=== PATIENT | male | born 1940 | race Caucasian/White ===

== ENCOUNTER 2018-01-24 17:47 | Observation (INO) ==
[2018-01-24] MEDS ORDERED: *HR* OxyCODONE Immed Rel 5 MG TABLET PO PRN (20:13)
[2018-01-24] MEDS ORDERED: *HR* HYDROcodone/Acet 5/325 mg TABLET PO PRN (20:13)
[2018-01-24] MEDS ORDERED: Naloxone 0.4 MG/ML INJ IVP PRN (20:13)
[2018-01-24] MEDS ORDERED: Acetaminophen 325 MG TABLET PO PRN (20:13)
[2018-01-24] MEDS ORDERED: Ipratropium/Albuterol Neb 3 ML IH PRN (20:18)
--- NOTE | 2018-01-24 20:28 | Internal Med History&Physical ---
<Randolph Whitney - Last Filed: 01/24/18 20:21> Date of Encounter: 01/24/18 Time of Encounter: 20:21 Internal Medicine - H&P: HPI Chief complaint: chills Admitted From: Hospital to Hospital Transfer Plans for Post Hospital Care: Home History of present illness: Mr. Shah is a 77 year old male with past medical history of COPD, hyperlipidemia, hypertension, stage III chronic kidney disease, depression, TIA , HFpEF, KARLENE and urinary retention presents to emergency department with chills 2 days. He reports symptoms were sudden onset and he also was experiencing diaphoresis fevers. Eyes recorded temperature per daughter who is at bedside was 102.9. He states that he has also been experiencing urinary frequency but denies any symptoms of dysuria, strong odor, discoloration. Denies any symptoms of chest pain, shortness of breath, abdominal pain, nausea, vomiting, flank pain. He has had urinary tract infections in the past with most recent urine culture growing strep agalactiae. Also reports generalized weakness and malaise during this time but states that this is likely chronic. He denies any symptoms of chest pain, shortness of breath, palpitations although does admit to cough with yellow sputum which is chronic. Patient's daughter states that he is at his baseline mental status. In [facility] emergency room, vital signs are significant for tachycardia 137, BP 75/55. EKG was obtained which reportedly showed atrial fibrillation. He received 2 L normal saline bolus with improvement of both blood pressure and heart rate. Patient denies any history of atrial fibrillation on the past. He is not on anticoagulation but is on clopidogrel and daughter states that aspirin was stopped recently by his primary care physician. Lab results were significant for a WBC of 13.6, platelets 106, potassium 3.1, P1/creatinine of 30 /1.88. Baseline creatinine appears to be around 1.4-1.5. Lactic acid was 2.0 and urinalysis indicates likely infection. Obtain chest x-ray which was unremarkable. He was given 2 g of Rocephin in the emergency department and admitted. He was then transferred to [facility] due to new onset atrial fibrillation with recommendation for cardiology consult. Past medical history as above Past surgical history includes cataracts, right ear surgery, heart catheterization with stent placement Social history: Patient denies cigarette smoking, states he drinks 1-2 beers per night, denies illicit drug use Most recent stress echo performed on 03/28/16 shows ejection fraction of 60% with atypical septal motion consistent with bundle branch block. Stress portion was negative for ischemia. Past Med Surg Social Fam HX - Past Medical History Medical history: COPD, hyperlipidemia, hypertension, renal disease, other ( atrial fib) Additional medical history: SLEEP APNEA. HOME O2. RLS. CRI. TIA. ANXIETY. RLS. DIASTOLIC CHF. CAD. PHIMOSIS. EDEMA RIGHT HAND Psychiatric history: depression - Past Surgical History Surgical History: other Additional surgical history: HEART CATH WITH STENTS. CATARACT REMOVAL. RIGHT EAR SURGERY - Social History Smoking Status: Former smoker Smokeless Tobacco Status: No Alcohol use: rarely Drug use: none Internal Medicine - H&P: Meds Atorvastatin [Lipitor] 40 mg PO HS 01/25/16 [History] Buspirone HCl [Buspar] 15 mg PO BID 01/25/16 [History] Clopidogrel [Plavix] 75 mg PO DAILY 01/25/16 [History] Isosorbide MONOnitrate (24 HR) [Imdur] 30 mg PO DAILY 01/25/16 [History] Loratadine [Claritin] 10 mg PO DAILY 01/25/16 [History] Metoprolol [Lopressor] 25 mg PO BID 01/25/16 [History] Omeprazole [PriLOSEC] 40 mg PO DAILY 01/25/16 [History] Albuterol Sulfate [Albuterol Inhaler] 2 puff IH BID PRN 03/21/16 [History] Docusate [Colace] 100 mg PO BID #60 capsule 03/21/16 [Rx] Ipratropium/Albuterol Neb [Duoneb] 3 ml IH Q6HR PRN 03/21/16 [History] Mv,Ca,Fe,Min/FA/Guarana/Caff [One Daily Tablet] 1 each PO DAILY 03/21/16 [ History] Oxybutynin Chloride [Ditropan Xl] 10 mg PO DAILY 03/21/16 [History] Potassium Chloride [K-Tab ER] 20 meq PO BID 03/21/16 [History] Sertraline [Zoloft] 50 mg PO DAILY 03/21/16 [History] Terazosin [Hytrin] 5 mg PO HS 03/21/16 [History] Vit A/C/E AC/Znox/Cupric Oxide [Eye Vitamin-Minerals Tablet] 1 each PO BID 03/21 [History] metOLazone [Zaroxolyn] 2.5 mg PO DAILY 03/21/16 [History] Allopurinol [Zyloprim 100 MG] 100 mg PO DAILY 01/24/18 [History] Umeclidinium Brm/Vilanterol Tr [Anoro Ellipta 62.5-25 Mcg INH] 1 each IH [History] 3 Allergy/AdvReac Type Severity Reaction Status Date / Time No Known Allergies Allergy Verified 09/01/17 17:00 All Systems PM: A 10-system review of systems was performed and is negative for pertinent findings except as documented above in the HPI. - Constitutional Constitutional: chills, excessive sweating, fever(s), weakness - EENT Eyes: no blurry vision - Cardiovascular Cardiovascular ROS IM: no chest pain, no diaphoresis, no dyspnea, no dyspnea on exertion, no edema, no irregular heart rhythm, no lightheadedness, no palpitations, no paroxysmal nocturnal dyspnea, no syncope - Respiratory Respiratory: cough, no dyspnea, no dyspnea on exertion, no wheezing, no change in phlegm color, no pain with cough - Gastrointestinal Gastrointestinal: no abdominal pain, no constipation, no diarrhea, no hematemesis, no loose stools, no melena, no nausea, no vomiting - Genitourinary Genitourinary ROS male: urinary frequency, no dysuria, no flank pain, no hematuria, no urinary hesitancy, no urinary incontinence, no urinary urgency - Integumentary Integumentary IM: no rash - Neurological Neurological ROS: no confusion, no dizziness, no headache(s), no numbness, no tingling, no weakness - Constitutional Vitals: Temp Pulse Resp BP Pulse Ox 98.4 F 72 18 116/60 97 01/24/18 19:22 01/24/18 19:22 01/24/18 19:22 01/24/18 19:22 01/24/18 19:22 Exam: Gen.: Vitals noted. No acute distress. Alert and oriented. Resting comfortably in bed. HEENT: PERRL/EOMI, oropharynx clear, Normocephalic, atraumatic, MMM Cardiac: RRR, no murmur, +S1/S2. Pulmonary: CTA bilaterally, no wheezes, rales or rhonchi, equal chest expansion. Lung bases difficult to auscultate due to bowel sounds Abdomen: soft, nontender, BS noted, no guarding, no rebound. MSK: ROM intact, no joint swelling noted Extremities: Minimal BLE edema, nontender calf, no cyanosis or clubbing Back: No flank tenderness bilaterally Neuro: A&Ox3, moves all extremities, no focal deficits Psych: Appropriate mood and behavior - Assessment and plan (1) Severe sepsis Current Visit: Yes Status: Resolved Assessment and plan: - Meets qualifications for severe sepsis on presentation to [facility] with elevated WBC of 13.6, tachycardia, lactic acid 2.0 - Was initially hypotensive at 75/55 emergency department but this has improved with fluids - This has resolved after treatment with fluids - WBC was trended and is now within normal limits at 10.6. Lactic acid trended is now 1.4 - Of note, patient was atrial fibrillation with rapid ventricular response which is now converted back to normal sinus rhythm - Likely source is urinary tract infection is temperature on urinalysis at [facility] emergency department - Blood cultures, urinary cultures drawn and [facility] pending - Previous culture showed strep agalactiae - Started on Rocephin 2 g and [facility] Plan - Continue Rocephin 1 g daily - Follow up on blood and urine cultures - Will not trend lactic acid as sepsis has resolved at this time of presentation - (2) Urinary tract infection Current Visit: Yes Status: Acute Assessment and plan: As above for severe sepsis Qualifiers: Urinary tract infection type: acute cystitis Hematuria presence: without hematuria Qualified Code(s): N30.00 - Acute cystitis without hematuria (3) New onset atrial fibrillation Current Visit: Yes Status: Acute Assessment and plan: - Atrial fibrillation with rapid ventricular response documented at [facility] emergency room - Converted back to normal sinus rhythm with rate control by the time he was admitted to [facility] - Continue home metoprolol 25 mg twice a day - Also noted to have stable right bundle branch block - He was transferred to [facility] for cardiology consultation as well as possible need for Cardizem drip will also having borderline hypotension - Troponin negative, we will trend - Started on Lovenox 1 mg/kg at [facility]. Will start eliquis 5mg BID - CHADVASC score 6 (age, CHF, HTN, TIA), HASBLED 4 (age, alcohol, stroke, antiplatelet) - TSH wnl. baseline anemia. Plan - Currently in NSR, rate in 70s. BP stable. - Patient is high risk for ischemic event, will start on eliquis, daughter denies previous bleeds - Continue home BB - Echocardiogram pending - Cardiology consult given new onset, appreciate recs. (4) Acute on chronic kidney failure Current Visit: Yes Status: Acute Assessment and plan: - History of Stage III CKD - BUN/Cr of 30/1.88 on presentation (baseline Cr of 1.4-1.5) - Possibly secondary to pre-renal in setting of AFib, sepsis, dehydration - Received 2L bolus in [facility] ED, euvolemic on exam, labs drawn before. Plan - Continue to monitor and check AM labs - Avoid nephrotoxic agents. Qualifiers: Acute renal failure type: unspecified Chronic kidney disease stage: stage 3 (moderate) Qualified Code(s): N17.9 - Acute kidney failure, unspecified; N18.3 - Chronic kidney disease, stage 3 (moderate) (5) Hypokalemia Current Visit: Yes Status: Acute Assessment and plan: Potassium 3.1 on presentation to [facility] Check magnesium Does take potassium supplementation at home, 20 mEq per day We will check again with morning labs (6) Thrombocytopenia Current Visit: Yes Status: Chronic Assessment and plan: Chronic, most recent reading of 106 No signs of bleeding Continue monitor in the setting of starting anticoagulation also on clopidogrel (7) Hypertension Current Visit: Yes Status: Chronic Assessment and plan: Well-controlled at most recent reading of 116/60, improved from [facility] after 2 L saline bolus Continue home medications Qualifiers: Hypertension type: essential hypertension Qualified Code(s): I10 - Essential (primary) hypertension (8) DVT prophylaxis Current Visit: Yes Status: Acute Assessment and plan: Start eliquis as above for AFib - Time Spent With Patient Total time spent is greater than 50% in coordination of care (as documented) at patient's floor/unit and/or counseling patient: <Brooks Burtchetanronda - Last Filed: 01/25/18 00:58> Date of Encounter: 01/25/18 Internal Medicine - H&P: HPI History of present illness: Mr. Shah is a 77 year old male All Systems PM: A 10-system review of systems was performed and is negative for pertinent findings except as documented above in the HPI. - Constitutional Vitals: Temp Pulse Resp BP Pulse Ox 98.4 F 72 18 116/60 98 01/24/18 19:22 01/24/18 19:22 01/24/18 19:22 01/24/18 19:22 01/24/18 20:58 Internal Med - H&P Results - Labs Labs: Cardiac Enzymes 01/24/18 Range/Units 20:42 Troponin I 0.03 (< 0.04) ng/mL - Attending Attestation I examined this patient and my medical decision-making was reviewed with the Resident Physician. I agree with the documented findings, disposition and treatment plan as described except to the extent set forth below. - Time Spent With Patient Total time spent is greater than 50% in coordination of care (as documented) at patient's floor/unit and/or counseling patient:
[2018-01-24] MEDS: Potassium Chloride Elixir 20 MEQ/15 ML UDC PO SCH (22:03)
[2018-01-24] MEDS: Apixaban 5 MG TABLET PO SCH (22:03)
[2018-01-25 03:38] LABS: Basophils % 0.8 %
[2018-01-25 03:39] LABS: Basophils # 0.1 K/mcL (0.0-0.2); Eosinophils # 0.4 K/mcL (0.0-0.6); Eosinophils % 4.5 %; Hematocrit 33.8 % (37.5-50.1); Hemoglobin 11.4 g/dL (12.9-16.9); Immature Granulocytes % 0.6 % (0-4); Immature Platelets 9.6 % (1.1-6.1); Lymphocytes # 1.1 K/mcL (0.6-4.6); Lymphocytes % 13.2 %; Mean Corpuscular HGB Conc 33.7 g/dL (31.6-35.5); Mean Corpuscular Hemoglobin 31.8 pg (28.0-33.3); Mean Corpuscular Volume 94.4 fL (83.0-100.0); Mean Platelet Volume 11.6 fL (9.4-12.4); Monocytes # 0.6 K/mcL (0.0-1.3); Monocytes % 7.1 %; Neutrophils # 6.4 K/mcL (1.6-8.9); Red Blood Count 3.58 M/mcL (4.19-5.50); Red Cell Distribution Width 14.6 % (11.5-14.5); Segmented Neutrophils % 73.8 %
[2018-01-25 03:43] LABS: BUN/Creatinine Ratio 18 (6-26); Blood Urea Nitrogen 26 mg/dL (8-23); Calcium 7.9 mg/dL (8.6-10.3); Carbon Dioxide 26 mEq/L (23-29); Chloride 106 mEq/L (98-107); Glucose 98 mg/dL (70-105); Magnesium 1.3 mg/dL (1.6-2.6); Osmolality,Calculated 293 (280-300); Potassium 3.3 mEq/L (3.5-5.1); Sodium 139 mEq/L (136-145); Troponin I < 0.03 ng/mL (< 0.04); eGFR For Non-African Americans 47 (> 60)
[2018-01-25 03:47] LABS: Platelet Count 96 K/mcL (140-400)
--- NOTE | 2018-01-25 08:36 | Cardiology Consult Note ---
<John Arriaga - Last Filed: 01/25/18 10:07> Date of Encounter: 01/25/18 Time of Encounter: 08:40 Assessment and Plan (1) UTI (urinary tract infection) Current Visit: Yes Status: Acute Per Cardiology: Management per primary service. On antibiotics. Qualifiers: Urinary tract infection type: acute cystitis Qualified Code(s): N30.00 - Acute cystitis without hematuria (2) New onset atrial fibrillation Current Visit: Yes Status: Acute Per Cardiology: No known previous afib. ECG reviewed with Dr. Dunham-- no clear cut evidence of afib/aflutter. Tele shows no afib/flutter. K & Mg replaced. Tsh ok. Awaiting echo. Has been started on Eliquis already, will need to address if will remain clinically recommended. Hx of ETOH, hx of TIAs. Has apparent hx of thrombocytopenia. (3) CAD (coronary artery disease) Current Visit: Yes Status: Chronic Per Cardiology: Hx of CAD. Last [facility] 2012: Lesion Findings/Interventions * Left Main Coronary Artery The LMCA is angiographically free of disease. * Left Anterior Descending Coronary Artery There is a 25% stenosis in the Proximal LAD. * Circumflex Coronary Artery There is a 30% stenosis in the Proximal Circumflex. * Right Coronary Artery There is a 10 mm long, 99% stenosis in the Proximal RCA. The lesion has a [place] flow of 3 and has no thrombus present. An intervention was performed on the Proximal RCA with a final stenosis of 0%. There were no lesion complications. The final [place] flow was 3. There is a 30% stenosis in the Mid RCA. On statin, plavix, BB, Imdur. Trops negative x 3. Qualifiers: Coronary Disease-Associated Artery/Lesion type: [place] artery [place] vs. transplanted heart: tejon heart Associated angina: without angina Qualified Code(s): I25.10 - Atherosclerotic heart disease of te[place] coronary artery without angina pectoris (4) CKD (chronic kidney disease) stage 3, GFR 30-59 ml/min Current Visit: No Status: Chronic Per Cardiology: Remains around baseline. Discussion w patient/family: The assessment and plan as outlined above was discussed with the patient and/or family members who expressed understanding and agreement. All questions were answered. Thank you for involving us in the care of your patient. Please call with any questions. History of Present Illness Consult date: 01/25/18 Requesting physician: Randolph Whitney Consult reason: afib Chief complaint: Chills History of present illness: Mr. Shah is a 77 year old male with relevant past medical history of nicotine abuse, COPD, HLD, HTN, CK D stage IIIA to 3B, history of TIAs, CAD, objective sleep apnea. Last seen by Dr. Dunham November 2017. Cardiology consult for concerns of atrial flutter with RVR. Presented to outside facility for concerns of chills with diaphoresis for the past 2 days. Daughter indicates temperature of around 103 Fahrenheit. He denies any dysuria, frequency, foul odor. Patient denied any chest pain, shortness of breath, palpitations. Reports utilizes home oxygen on a regular basis. He denies any dizziness, syncope, falls. Denies any active bleeding or blood loss. Denies any edema. Daughter reports current mental status around baseline-- A&Ox3. Of note, patient is DNR Comfort Care arrest. Past Med Surg Social Fam HX - Past Medical History Medical history: COPD, hyperlipidemia, hypertension, renal disease, other ( atrial fib) Additional medical history: SLEEP APNEA. HOME O2. RLS. CRI. TIA. ANXIETY. RLS. DIASTOLIC CHF. CAD. PHIMOSIS. EDEMA RIGHT HAND Psychiatric history: depression - Past Surgical History Surgical History: other Additional surgical history: HEART CATH WITH STENTS. CATARACT REMOVAL. RIGHT EAR SURGERY - Social History Smoking Status: Former smoker Smokeless Tobacco Status: No Alcohol use: rarely Drug use: none Medications and Allergies Atorvastatin [Lipitor] 40 mg PO HS 01/25/16 [History] Buspirone HCl [Buspar] 15 mg PO BID 01/25/16 [History] Clopidogrel [Plavix] 75 mg PO DAILY 01/25/16 [History] Isosorbide MONOnitrate (24 HR) [Imdur] 30 mg PO DAILY 01/25/16 [History] Loratadine [Claritin] 10 mg PO DAILY 01/25/16 [History] Metoprolol [Lopressor] 25 mg PO BID 01/25/16 [History] Omeprazole [PriLOSEC] 40 mg PO DAILY 01/25/16 [History] Albuterol Sulfate [Albuterol Inhaler] 2 puff IH BID PRN 03/21/16 [History] Docusate [Colace] 100 mg PO BID #60 capsule 03/21/16 [Rx] Ipratropium/Albuterol Neb [Duoneb] 3 ml IH Q6HR PRN 03/21/16 [History] Mv,Ca,Fe,Min/FA/Guarana/Caff [One Daily Tablet] 1 each PO DAILY 03/21/16 [ History] Oxybutynin Chloride [Ditropan Xl] 10 mg PO DAILY 03/21/16 [History] Potassium Chloride [K-Tab ER] 20 meq PO BID 03/21/16 [History] Terazosin [Hytrin] 5 mg PO HS 03/21/16 [History] Vit A/C/E AC/Znox/Cupric Oxide [Eye Vitamin-Minerals Tablet] 1 each PO BID 03/21 [History] metOLazone [Zaroxolyn] 2.5 mg PO DAILY 03/21/16 [History] Allopurinol [Zyloprim 100 MG] 100 mg PO DAILY 01/24/18 [History] Umeclidinium Brm/Vilanterol Tr [Anoro Ellipta 62.5-25 Mcg INH] 1 each IH DAILY 01/24/18 [History] Dicyclomine [Bentyl] 10 mg PO TID 01/25/18 [History] Sertraline [Zoloft] 100 mg PO DAILY 01/25/18 [History] 3 Allergy/AdvReac Type Severity Reaction Status Date / Time No Known Allergies Allergy Verified 09/01/17 17:00 All Systems Review: The remainder of the systems were reviewed and are negative - Constitutional Constitutional: chills, fever(s), night sweats - Cardiovascular Cardiovascular: as per HPI Physical Examination Vital Signs, Last 4 Hours Temp Pulse Resp BP Pulse Ox 01/25/18 07:18 97.9 F 61 16 108/72 96 01/25/18 05:00 98.1 F 54 18 118/64 92 General: Conversant, No Apparent Distress HEENT: Atraumatic, Normocephaly, Mucus Membranes Moist Neck: No JVD, Normal carotid pulses Cardiac: Reg Rate and Rhythm, Normal S1 and S2, No Murmur Lungs: Normal Breath Sounds, No Wheeze, Rales, Rhonchi Neuro: Alert and responsive, No focal deficits noted Abdomen: Soft, Non-Tender Skin: No rashes noted on visualized skin Musculoskeletal: No Chest Wall Tenderness Extremities: No Clubbing, No Cyanosis, No Edema, Normal Pulses Results 01/25/18 03:12 01/25/18 03:12 Lab Results Laboratory Tests 04/04/14 01/09/15 03/28/16 12:16 03:31 02:51 Hgb 12.6 L Hct Plt Count 103 L 97 L Potassium Creatinine Est GFR (Non-Af Amer) Magnesium Troponin I B-Natriuretic Peptide TSH Ur Leukocyte Esterase Ur Culture Indicated? 03/28/16 04/30/16 11/21/16 02:51 13:41 10:07 Hgb Hct Plt Count Potassium Creatinine 1.50 H Est GFR (Non-Af Amer) 45 L 44 L Magnesium Troponin I B-Natriuretic Peptide TSH Ur Leukocyte Esterase Ur Culture Indicated? 09/30/17 09/30/17 01/24/18 16:10 16:10 13:00 Hgb 12.3 L 13.1 Hct 37.1 L 38.7 Plt Count 106 L Potassium Creatinine 1.60 H Est GFR (Non-Af Amer) 42 L Magnesium Troponin I B-Natriuretic Peptide TSH Ur Leukocyte Esterase Ur Culture Indicated? 01/24/18 01/24/18 01/24/18 13:00 13:00 14:15 Hgb Hct Plt Count Potassium Creatinine 1.88 H Est GFR (Non-Af Amer) Magnesium Troponin I < 0.03 B-Natriuretic Peptide TSH 2.392 Ur Leukocyte Esterase Large H Ur Culture Indicated? YES A 01/24/18 01/24/18 01/25/18 16:45 20:42 03:12 Hgb Hct Plt Count Potassium 3.3 L Creatinine 1.44 H Est GFR (Non-Af Amer) 47 L Magnesium 1.3 L Troponin I 0.03 < 0.03 B-Natriuretic Peptide 231 H TSH Ur Leukocyte Esterase Ur Culture Indicated? 01/25/18 03:12 Hgb 11.4 L Hct 33.8 L Plt Count 96 L Potassium Creatinine Est GFR (Non-Af Amer) Magnesium Troponin I B-Natriuretic Peptide TSH Ur Leukocyte Esterase Ur Culture Indicated? Active Medications Acetaminophen (Tylenol) 650 mg PO Q6HR PRN PRN Reason: Mild Pain/Fever Stop: 07/26/18 20:14 Hydrocodone Bitart/Acetaminophen ([place] 5-325 Mg) 1 tab PO Q6HR PRN PRN Reason: Moderate Pain Stop: 07/26/18 20:14 Albuterol Sulfate (Albuterol Inhaler) 2 puff IH BIDRESP PRN PRN Reason: Shortness Of Breath Stop: 07/26/18 20:19 Albuterol/Ipratropium (Duoneb) 3 ml IH [id number] PRN PRN Reason: Shortness Of Breath Stop: 07/26/18 20:19 Allopurinol (Zyloprim) 100 mg PO DAILY [facility] Stop: 07/27/18 09:01 Apixaban (Eliquis) 5 mg PO BID [facility] Stop: 07/26/18 21:01 Last Admin: 01/24/18 22:03 Dose: 5 mg Atorvastatin Calcium (Lipitor) 40 mg PO HS [facility] Stop: 07/26/18 21:01 Last Admin: 01/24/18 22:03 Dose: 40 mg Buspirone HCl (Buspar) 15 mg PO BID IT[facility] Stop: 07/26/18 21:01 Last Admin: 01/24/18 22:03 Dose: 15 mg Clopidogrel Bisulfate (Plavix) 75 mg PO DAILY [facility] Stop: 07/27/18 09:01 Docusate Sodium (Colace) 100 mg PO BID ITZ PRN Reason: Protocol Stop: 07/26/18 21:01 Last Admin: 01/24/18 22:03 Dose: Not Given Ceftriaxone Sodium 1,000 mg/ (Sterile Water) 10 mls @ 600 mls/hr IVP DAILY [facility] Stop: 07/27/18 09:01 Isosorbide Mononitrate (Imdur) 30 mg PO DAILY [facility] Stop: 07/27/18 09:01 Metolazone (Zaroxolyn) 2.5 mg PO DAILY [facility] Stop: 07/27/18 09:01 Metoprolol Tartrate (Lopressor) 25 mg PO BID [facility] Stop: 07/26/18 21:01 Last Admin: 01/24/18 22:03 Dose: 25 mg Naloxone HCl (Narcan) 0.4 mg IVP Q2MIN PRN PRN Reason: SEE COMMENTS Stop: 07/26/18 20:14 Oxybutynin Chloride (Ditropan) 5 mg PO BID [facility] Stop: 07/27/18 09:01 Oxycodone HCl (Roxicodone) 10 mg PO Q6HR PRN PRN Reason: Severe Pain Stop: 07/26/18 20:14 Potassium Chloride (Potassium Chloride) 20 meq PO BID [facility] Stop: 07/26/18 21:01 Last Admin: 01/24/18 22:03 Dose: 20 meq Sertraline HCl (Zoloft) 50 mg PO DAILY [facility] Stop: 07/27/18 09:01 Terazosin HCl (Hytrin) 5 mg PO HS [facility] Stop: 07/26/18 21:01 Last Admin: 01/24/18 22:03 Dose: 5 mg - Imaging and Cardiology Chest Xray: report reviewed (IMPRESSION: No acute process.) Stress Test: report reviewed (03/2016: Impressions: Stress ECG was negative for ischemia at the level of heart rate achieved. Appropriate increase EF with stress. Bundle branch block complicates interpretation, but no obvious segmental wall motion abnormalities to suggest ischemia. Negative stress ECG/ echocardiogram for ischemia.) Echo: pending Cardiac cath: report reviewed - EKG Interpretation EKG results cardiology: personally reviewed, other (24-hour telemetry reviewed with average heart rate 73, sinus rhythm with no significant events) Consult Discharge Plan - Plan Referrals: NONE,PCP [Non-Partnered Physician] - <Christina Dunham - Last Filed: 01/25/18 15:44> Date of Encounter: 01/25/18 - Attending Attestation I examined this patient and my medical decision-making was reviewed with the ENVIRONMENTAL SOLUTIONS ENGINEER. I agree with the documented findings, disposition and treatment plan as described. Mr. Shah is known to me from the outpatient setting last seen 12/04/17. He presents for chills, fever and diaphoresis discovered to have a UTI. Primary team concerned about new Aflutter on ECG. ECG reviewed with John Arriaga CNP. No clear evidence of atrial flutter on ECG or telemetry. Eliquis not indicated at this time. Additionally may not be a suitable candidate for anticoagulation given developing dementia, parkinson's and potential for mechanical instability. This was discussed with the family. Will sign off. Plan to see Mr. Shah in the outpatient Cardiology office. . Assessment and Plan Discussion w patient/family: The assessment and plan as outlined above was discussed with the patient and/or family members who expressed understanding and agreement. All questions were answered. Thank you for involving us in the care of your patient. Please call with any questions. History of Present Illness History of present illness: Mr. Shah is a 77 year old male All Systems Review: The remainder of the systems were reviewed and are negative Results 01/25/18 03:12 01/25/18 03:12 Lab Results 01/24/18 01/25/18 01/25/18 20:42 03:12 03:12 WBC 8.6 Hgb 11.4 L Hct 33.8 L Plt Count 96 L Sodium 139 Potassium 3.3 L Chloride 106 Carbon Dioxide 26 BUN 26 H Creatinine 1.44 H Glucose 98 Calcium 7.9 L Magnesium 1.3 L Troponin I 0.03 < 0.03 01/25/18 10:04 WBC Hgb Hct Plt Count Sodium Potassium Chloride Carbon Dioxide BUN Creatinine Glucose Calcium Magnesium Troponin I < 0.03
[2018-01-25] MEDS ORDERED: Isosorbide MONOnitrate (24 HR) 60 MG TAB.ER.24H PO SCH (09:00)
[2018-01-25] MEDS ORDERED: metOLazone 2.5 MG TABLET PO SCH ×2 (09:00→21:00)
[2018-01-25] MEDS: Apixaban 5 MG TABLET PO SCH (09:50)
[2018-01-25] MEDS: cefTRIAXone 1,000 MG in Water for inj. (sterile) 20 ML 10 ML IVP SCH (09:50)
[2018-01-25] MEDS: Potassium Chloride Elixir 20 MEQ/15 ML UDC PO SCH ×2 (09:50→21:10)
--- NOTE | 2018-01-25 11:30 | Internal Med Progress Note ---
Hospitalist Progress Note - Encounter Date of Encounter: 01/25/18 Time of Encounter: 11:27 - Subjective Interval History: Patient had no acute events overnight. He states that he feels better today. He denies chest pain or palpitations. He denies fever, chills, SOB, nausea, vomiting, or abdominal pain. He has no complaints at this time. - Exam Vitals: Temp Pulse Resp BP Pulse Ox 97.9 F 61 16 108/72 96 01/25/18 07:18 01/25/18 07:18 01/25/18 07:18 01/25/18 07:18 01/25/18 07:18 Exam: Gen - Awake, alert, no acute distress HEENT - NCAT, PERRLA, EOMI, hearing grossly intact, oropharynx benign CV - RRR, normal S1 and S2, no M/R/G, no BLE edema Resp - Normal WOB, CTAB, no W/R/R GI - Soft, NT/ND, no masses, normal bowel sounds, no HSP Skin - Warm, dry, no rashes/lesions/ulcers Psych - Normal mood and affect, no depression or anxiety - Assessment and Plan (1) Severe sepsis Current Visit: Yes Status: Resolved Assessment and Plan: - Meets qualifications for severe sepsis on presentation to [facility] with elevated WBC of 13.6, tachycardia, lactic acid 2.0 - Was initially hypotensive at 75/55 emergency department but this has improved with fluids - This has resolved after treatment with fluids - WBC was trended and is now within normal limits at 10.6. Lactic acid trended is now 1.4 - Of note, patient was atrial fibrillation with rapid ventricular response which is now converted back to normal sinus rhythm - Likely source is urinary tract infection is temperature on urinalysis at [facility] emergency department - Blood cultures, urinary cultures drawn and [facility] pending - Previous culture showed strep agalactiae - Started on Rocephin 2 g and [facility] Plan - Continue Rocephin 1 g daily - Follow up on blood and urine cultures - Will not trend lactic acid as sepsis has resolved at this time of presentation 01/25 - Sepsis resolved. Continue IV rocephin for UTI as per below. Blood cultures no growth to date x 2; follow up on final cultures. (2) Urinary tract infection Current Visit: Yes Status: Acute Assessment and Plan: 01/25 - Continue IV rocephin. (3) New onset atrial fibrillation Current Visit: Yes Status: Acute Assessment and Plan: - Atrial fibrillation with rapid ventricular response documented at [facility] emergency room - Converted back to normal sinus rhythm with rate control by the time he was admitted to [facility] - Continue home metoprolol 25 mg twice a day - Also noted to have stable right bundle branch block - He was transferred to [place] for cardiology consultation as well as possible need for Cardizem drip will also having borderline hypotension - Troponin negative, we will trend - Started on Lovenox 1 mg/kg at [facility]. Will start eliquis 5mg BID - CHADVASC score 6 (age, CHF, HTN, TIA), HASBLED 4 (age, alcohol, stroke, antiplatelet) - TSH wnl. baseline anemia. Plan - Currently in NSR, rate in 70s. BP stable. - Patient is high risk for ischemic event, will start on eliquis, daughter denies previous bleeds - Continue home BB - Echocardiogram pending - Cardiology consult given new onset, appreciate recs. 01/25 - Cardiology consulted; appreciate input. They are not convinced this is Afib. ECHO pending. Continue home metoprolol. Continue eliquis for now. Will await further recommendations from cardiology. (4) Acute on chronic kidney failure Current Visit: Yes Status: Chronic Assessment and Plan: - History of Stage III CKD - BUN/Cr of 30/1.88 on presentation (baseline Cr of 1.4-1.5) - Possibly secondary to pre-renal in setting of AFib, sepsis, dehydration - Received 2L bolus in [facility] ED, euvolemic on exam, labs drawn before. Plan - Continue to monitor and check AM labs - Avoid nephrotoxic agents. 01/25 - Creatinine around baseline. Avoid nephrotoxic agents and renally dose all medications. Recheck BMP in AM. (5) Hypokalemia Current Visit: Yes Status: Acute Assessment and Plan: Potassium 3.1 on presentation to [facility] Check magnesium Does take potassium supplementation at home, 20 mEq per day We will check again with morning labs 01/25 - K = 3.3. Give additional KCl 40 mEq PO once, then continue KCl 20 mEq PO BID. Recheck BMP in AM. (6) Thrombocytopenia Current Visit: Yes Status: Chronic Assessment and Plan: Chronic, most recent reading of 106 No signs of bleeding Continue monitor in the setting of starting anticoagulation also on clopidogrel 01/25 - Stable. Monitor for signs of bleeding. Recheck CBC in AM. (7) Hypertension Current Visit: Yes Status: Chronic Assessment and Plan: Well-controlled at most recent reading of 116/60, improved from [place] after 2 L saline bolus Continue home medications. 01/25 - Normotensive. Continue home medications. (8) Hypomagnesemia Current Visit: Yes Status: Acute Assessment and Plan: 01/25 - Repleted overnight. Recheck magnesium in AM. (9) DVT prophylaxis Current Visit: Yes Status: Acute Assessment and Plan: Start eliquis as above for AFib. 01/25 - Continue eliquis. - Time Spent with Patient Total time spent is greater than 50% in coordination of care (as documented) at patient's floor/unit and/or counseling patient: less than 15 minutes Plan of Care Discussed with: patient (Family, Nurse) Internal Medicine: Result - Labs CBC & Chem 7: 01/25/18 03:12 01/25/18 03:12 Labs: Short CBC 01/25/18 Range/Units 03:12 WBC 8.6 (4.3-11.1) K/mcL Hgb 11.4 L (12.9-16.9) g/dL Hct 33.8 L (37.5-50.1) % Plt Count 96 L (140-400) K/mcL Neutrophils # 6.4 (1.6-8.9) K/mcL BMP 01/25/18 03:12 Sodium 139 Potassium 3.3 L Chloride 106 Carbon Dioxide 26 BUN 26 H Creatinine 1.44 H Glucose 98 Calcium 7.9 L Cardiac Enzymes 01/24/18 01/25/18 01/25/18 Range/Units 20:42 03:12 10:04 Troponin I 0.03 < 0.03 < 0.03 (< 0.04) ng/mL - Impressions Impressions Echocardiogram 01/25/18 20:16 Impressions: LVEF 60%. Normal LV chamber size and function. Mild asymmetric hypertrophy of the basal septum. Moderate left ventricular diastolic dysfunction. Atypical septal motion consistent with bundle branch block. No evidence of pulmonary hypertension. No significant valvular dysfunction. Left Ventricular Wall Motion: Rest Echo Findings All wall segments showed normal motion. Findings: Study Quality * Technically adequate exam. ECG Findings * Sinus rhythm with BBB. Left Ventricle * LVEF 60%. * Normal LV chamber size and function. * Mild asymmetric hypertrophy of the basal septum. * Moderate left ventricular diastolic dysfunction. * Atypical septal motion consistent with bundle branch block. Right Ventricle * Normal right ventricular structure and function. Left Atrium * Mildly dilated left atrium. Right Atrium * Mildly dilated right atrium. Aortic Valve * Trileaflet aortic valve. * No aortic regurgitation. * No aortic stenosis. Mitral Valve * Normal mitral valve structure and function. * No mitral stenosis. * Trace mitral regurgitation. Tricuspid Valve * Normal tricuspid valve structure and function. * Trace tricuspid regurgitation. * No evidence of pulmonary hypertension. Pulmonic Valve * Normal pulmonic valve structure and function. * Trace pulmonic regurgitation. Aorta * Normally sized aortic root. Pericardium * The pericardium appears normal. IVC * Normal IVC dimensions and inspiratory collapse. Pulmonary Artery * Normal visualized portions of the main pulmonary artery. Consult Discharge Plan - Plan Referrals: NONE,PCP [Primary Care Provider] - (2) Urinary tract infection Qualifiers: Urinary tract infection type: acute cystitis Hematuria presence: without hematuria Qualified Code(s): N30.00 - Acute cystitis without hematuria (4) Acute on chronic kidney failure Qualifiers: Acute renal failure type: unspecified Chronic kidney disease stage: stage 3 ( moderate) Qualified Code(s): N17.9 - Acute kidney failure, unspecified; N18.3 - Chronic kidney disease, stage 3 (moderate) (7) Hypertension Qualifiers: Hypertension type: essential hypertension Qualified Code(s): I10 - Essential (primary) hypertension
--- NOTE | 2018-01-25 14:06 | Event Note ---
Date of Encounter: 01/25/18 Time of Encounter: 14:05 - Cardiology Event Note ECHO: Impressions: LVEF 60%. Normal LV chamber size and function. Mild asymmetric hypertrophy of the basal septum. Moderate left ventricular diastolic dysfunction. Atypical septal motion consistent with bundle branch block. No evidence of pulmonary hypertension. No significant valvular dysfunction. Left Ventricular Wall Motion: Rest Echo Findings All wall segments showed normal motion. Remains SR. On BB. Cardiology will s/o, re-consult PRN, F/u arranged. Discussed by Dr. Dunham with patient and family, will dc Eliquis-- not clinically warranted (no afib/flutter truly noted. 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 Patient and family agree with plan.
[2018-01-26 04:44] LABS: Basophils # 0.1 K/mcL (0.0-0.2); Basophils % 1.2 %; Eosinophils # 0.4 K/mcL (0.0-0.6); Eosinophils % 7.4 %; Hematocrit 34.9 % (37.5-50.1); Hemoglobin 11.7 g/dL (12.9-16.9); Immature Granulocytes % 0.4 % (0-4); Lymphocytes # 0.7 K/mcL (0.6-4.6); Lymphocytes % 14.7 %; Mean Corpuscular HGB Conc 33.5 g/dL (31.6-35.5); Mean Corpuscular Volume 92.6 fL (83.0-100.0); Mean Platelet Volume 11.2 fL (9.4-12.4); Monocytes # 0.5 K/mcL (0.0-1.3); Monocytes % 9.7 %; Neutrophils # 3.3 K/mcL (1.6-8.9); Platelet Count 108 K/mcL (140-400); Red Blood Count 3.77 M/mcL (4.19-5.50); Red Cell Distribution Width 14.7 % (11.5-14.5); Segmented Neutrophils % 66.6 %
[2018-01-26 05:03] LABS: BUN/Creatinine Ratio 20 (6-26); Blood Urea Nitrogen 22 mg/dL (8-23); Calcium 8.7 mg/dL (8.6-10.3); Carbon Dioxide 26 mEq/L (23-29); Chloride 104 mEq/L (98-107); Glucose 108 mg/dL (70-105); Magnesium 1.4 mg/dL (1.6-2.6); Osmolality,Calculated 288 (280-300); Potassium 3.8 mEq/L (3.5-5.1); Sodium 137 mEq/L (136-145); eGFR For Non-African Americans > 60 (> 60)
[2018-01-26 07:49] VITALS: BP 137/68
[2018-01-26] MEDS ORDERED: Isosorbide MONOnitrate (24 HR) 30 MG TAB.ER.24H PO SCH (09:00)
[2018-01-26] MEDS: cefTRIAXone 1,000 MG in Water for inj. (sterile) 20 ML 10 ML IVP SCH (10:23)
[2018-01-26] MEDS: Potassium Chloride Elixir 20 MEQ/15 ML UDC PO SCH (10:23)
--- NOTE | 2018-01-26 11:45 | Discharge Summary ---
- NOTES TO OUTPATIENT PROVIDER Notes to Outpatient Provider: Follow up with PCP in 2-3 days after discharge. Recheck BMP, CBC, and magnesium at that time. Follow up with cardiology as directed. Orders not resulted at time of discharge: Pending orders 01/27/18 04:00 Basic Metabolic Panel AM 0400 Complete Blood Count [HEME] AM 0400 Magnesium AM 0400 Date of Encounter: 01/26/18 Time of Encounter: 11:43 - Discharge Diagnosis (1) Severe sepsis Priority: Primary Status: Resolved (2) Urinary tract infection Priority: Secondary Status: Acute Qualifiers: Urinary tract infection type: acute cystitis Hematuria presence: without hematuria Qualified Code(s): N30.00 - Acute cystitis without hematuria (3) New onset atrial fibrillation Priority: Secondary Status: Ruled-out (4) Acute on chronic kidney failure Priority: Secondary Status: Chronic Qualifiers: Acute renal failure type: unspecified Chronic kidney disease stage: stage 3 (moderate) Qualified Code(s): N17.9 - Acute kidney failure, unspecified; N18.3 - Chronic kidney disease, stage 3 (moderate) (5) Hypokalemia Priority: Secondary Status: Resolved (6) Thrombocytopenia Priority: Secondary Status: Chronic (7) Hypertension Priority: Secondary Status: Chronic Qualifiers: Hypertension type: essential hypertension Qualified Code(s): I10 - Essential (primary) hypertension (8) Hypomagnesemia Priority: Secondary Status: Acute (9) DVT prophylaxis Priority: Secondary Status: Acute Hospital course: Mr. Shah is a 77 year old male admitted for sepsis, UTI, and new onset Afib. Patient was admitted for observation to general medical floor. He was given IVF at OSH. He was started on IV rocephin. Urine culture grew pansensitive E. coli. Sepsis resolved. He was started on eliquis for possible Afib. His home metoprolol was continued. Cardiology was consulted. He remained in sinus rhythm during hospitalization. ECHO showed LVEF 60%, normal LV size and function, mild asymmetric hypertrophy of basal septum, moderate LV diastolic dysfunction, atypical septal motions consistent with bundle branch block, no pulmonary hypertension, and no significant valvular dysfunction. Cardiology was not convinced that patient was in Afib/flutter. They did not think anticoagulation was warranted. They recommended continuing home metoprolol and follow up as outpatient. Patient will complete 4 more days of Keflex as outpatient for UTI. He will follow up with PCP in 2-3 days after discharge. Repeat BMP, CBC, and magnesium can be rechecked at that time. He will follow up with cardiology as directed. Patient has met maximum benefit of this hospitalization and will be discharged home in stable condition. Discharge discussed with: patient, family, nurse - Time Spent with Patient Total time spent providing and/or coordinating discharge services: Less than 30 minutes - Discharge Medications Prescriptions: cephALEXin [Keflex] 500 mg PO BID #9 capsule Home Medications: Atorvastatin [Lipitor] 40 mg PO HS 01/25/16 [History] Buspirone HCl [Buspar] 15 mg PO BID 01/25/16 [History] Clopidogrel [Plavix] 75 mg PO DAILY 01/25/16 [History] Isosorbide MONOnitrate (24 HR) [Imdur] 30 mg PO DAILY 01/25/16 [History] Loratadine [Claritin] 10 mg PO DAILY 01/25/16 [History] Metoprolol [Lopressor] 25 mg PO BID 01/25/16 [History] Omeprazole [PriLOSEC] 40 mg PO DAILY 01/25/16 [History] Albuterol Sulfate [Albuterol Inhaler] 2 puff IH BID PRN 03/21/16 [History] Docusate [Colace] 100 mg PO BID #60 capsule 03/21/16 [Rx] Ipratropium/Albuterol Neb [Duoneb] 3 ml IH Q6HR PRN 03/21/16 [History] Mv,Ca,Fe,Min/FA/Guarana/Caff [One Daily Tablet] 1 each PO DAILY 03/21/16 [ History] Oxybutynin Chloride [Ditropan Xl] 10 mg PO DAILY 03/21/16 [History] Potassium Chloride [K-Tab ER] 20 meq PO BID 03/21/16 [History] Terazosin [Hytrin] 5 mg PO HS 03/21/16 [History] Vit A/C/E AC/Znox/Cupric Oxide [Eye Vitamin-Minerals Tablet] 1 each PO BID 03/21 [History] metOLazone [Zaroxolyn] 2.5 mg PO DAILY 03/21/16 [History] Allopurinol [Zyloprim 100 MG] 100 mg PO DAILY 01/24/18 [History] Umeclidinium Brm/Vilanterol Tr [Anoro Ellipta 62.5-25 Mcg INH] 1 each IH DAILY 01/24/18 [History] Dicyclomine [Bentyl] 10 mg PO TID 01/25/18 [History] Sertraline [Zoloft] 100 mg PO DAILY 01/25/18 [History] cephALEXin [Keflex] 500 mg PO BID #9 capsule 01/26/18 [Rx] Allergies/Adverse Reactions: 3 Allergy/AdvReac Type Severity Reaction Status Date / Time No Known Allergies Allergy Verified 09/01/17 17:00 Date of admission: 01/24/18 19:07 Primary care physician: Lauryn Arroyo CNP Consults: 01/24/18 20:17 Consult to Cardiology [CONS] Routine Comment: Consulting Provider: Cardiology Sharla Reason for Consult: New onset AFib Call Completed: No 01/25/18 11:26 Consult to Respiratory Therapy [CONS] Routine Reason for Consult: KARLENE, please adjust CPAP mask and settings as necessary, family notes apneic episodes overnight. Thanks. Call Completed: No Discharging clinician: Donny Khan Anticipated date of discharge: 01/26/18 - Constitutional Vitals: Temp Pulse Resp BP Pulse Ox 97.9 F 48 16 137/68 95 01/26/18 07:47 01/26/18 07:47 01/26/18 07:47 01/26/18 07:47 01/26/18 07:47 General appearance: Present: cooperative, A&O X 3, morbidly obese, pleasant, no acute distress, answers questions appropriately - Respiratory Respiratory exam: Present: CTAB. Absent: accessory muscle use, rales, rhonchi, wheezes Additional comments: Normal WOB - Cardiovascular Cardiovascular exam: Present: RRR, +S1, +S2. Absent: diastolic murmur, gallop, rubs, systolic murmur Additional comments: No BLE edema - GI/Abdominal GI/Abdominal exam: Present: normal bowel sounds, soft. Absent: distended, hepatomegaly, mass, splenomegaly, tenderness - Psychiatric Psychiatric exam: Present: normal affect, normal mood. Absent: agitated, anxious, depressed - Skin Skin exam: Present: dry, intact, warm. Absent: cyanosis, erythema, rash - Patient Status Disposition: Home, Self-Care Condition: Good Functional capacity at discharge: independent ambulation Overall status at discharge: patient is progressing back to baseline - Discharge Instructions Follow Up With: Puja Perez CNP [Advanced Practice Nurse] - 02/02/18 10:20 am Additional Instructions: Follow up with PCP in 2-3 days after discharge. Recheck BMP, CBC, and magnesium at that time. Follow up with cardiology as directed. - Diet and Activity Activity: resume usual activities as tolerated Diet: low fat, low cholesterol, low salt diet, other (Cardiac Diet) - VTE Contraindication No Overlap Therapy: Admin of oral Factor Xa Inhibitor
== END 2018-01-26 14:42 | disposition home or self-care (01) ==
LOC: 2NENU
PROVIDERS: ADMIT Internal Medicine Cardiovascular Disease; ATTEND Internal Medicine Cardiovascular Disease